=== PATIENT | male | born 1995 | race Caucasian/White ===

== ENCOUNTER 2021-02-06 18:24 | Observation (INO) ==
--- NOTE | 2021-02-06 22:12 | Emergency Department Note ---
History of Present Illness General Chief Complaint: Abdominal Pain Stated Complaint: ABD PAIN, NAUSEA Time Seen by Provider: 02/06/21 21:58 Source: patient Mode of arrival: ambulatory Limitations: no limitations History of Present Illness Provider Complaint: abdominal pain Onset (ago): hour(s) (Began around 4 AM) Pain Consistency: constant Location: RUQ and epigastric Radiation: none Migration to: no migration Severity: severe Maximum Pain Intensity: 8 Quality: + cramping Relieved By: + nothing Exacerbated By: + nothing Context: no foreign travel, no possible food poisoning, no sick contacts, no recent antibiotic use, no recent surgery/procedure, no recent injury or no history of similar episodes Associated Symptoms: + nausea and + vomiting; no diarrhea and no constipation Treatments prior to arrival: none Home Medications Medication Instructions Recorded Confirmed Type None (Patient States No Home Meds) #0 08/03/08 History Epinephrine (Epipen *) 0.3 mg IM UD #1 03/25/11 Rx simethicone 80 mg chewable tablet 160 mg PO DIRECTED PRN 02/06/21 02/06/21 History hydrocodone 5 mg-acetaminophen 325 1 - 2 tab PO .q4h- q6h PRN #15 tab 02/07/21 Rx mg tablet Allergies Allergy/AdvReac Type Severity Reaction Status Date / Time amoxicillin Allergy Intermediate HIVES Verified 02/07/21 08:16 AN Penicillins Allergy Intermediate HIVES Verified 02/07/21 08:16 AN INFANT BEES Allergy Intermediate HIVES, Uncoded 02/07/21 08:16 SWELLING, ITCHING, REDNESS Past Med/Surg History Medical History (Updated 02/07/21 @ 18:58 by Darío Keys MD) No pertinent past medical history Surgical History (Updated 02/07/21 @ 12:49 by Mona Almanzar RN) Hx laparoscopic cholecystectomy (02/07/21) Laparoscopic Cholecystectomy Dr. Ford 02/07/2021 No pertinent past surgical history Social History (System 02/07/21 @ 08:16 by Britney Rios) Smoking Status: Former smoker Tobacco Type: Smokeless Tobacco (Dip or Chew) Hx Alcohol Use: No Hx Substance Use: No Preferred Language: Taiwanese Communication Ability: Effective Electric Meter Installer Required: No Beliefs That Will Affect Care: None Current Living Situation: Family Feels Safe at Home: Yes Assistive Devices: None Physical Exam Vital Signs: Vital Signs - 24 hr 02/06/21 22:44 02/06/21 23:01 02/06/21 23:30 Pulse Rate 58 L 58 L 50 L Pulse Rate from Sp O2 Sensor 56 L 58 L 50 L Respiratory Rate 18 16 21 Blood Pressure 151/86 H 165/89 H 162/99 H Blood Pressure Jerica n 107 114 120 Pulse Oximetry 98 99 99 02/07/21 01:00 02/07/21 01:30 02/07/21 01:48 Pulse Rate 66 61 58 L Pulse Rate from Sp O2 Sensor 67 58 L 58 L Respiratory Rate 25 H 16 14 Blood Pressure 129/84 128/68 144/76 H Blood Pressure Jerica n 99 88 98 Pulse Oximetry 97 96 97 02/07/21 02:30 02/07/21 03:01 Pulse Rate 52 L 79 Pulse Rate from Sp O2 Sensor Respiratory Rate 18 15 Blood Pressure 104/79 116/92 Blood Pressure Jerica n 87 100 Pulse Oximetry 97 99 Physical Exam: GENERAL: Mildly uncomfortable in appearance, wearing glasses and a mask. EYE EXAM: Normal conjunctiva. PERRL, no anisocoria and EOM's grossly intact w/o pain. NECK: Supple, no nuchal rigidity, no adenopathy, non-tender. No signs of meningismus. [FROM of the neck with good chin to chest and neck extension. No stridor.] LUNGS: Clear to auscultation. Normal chest wall mechanics. HEART: NSR, no MRG. ABDOMEN: Abdomen soft, gastric and right upper quadrant pain, normo-active bowel sounds, no masses, no rebound or guarding. BACK: No CVA TTP. SKIN: No rashes and no bruising. UPPER EXTREMITIES: Upper extremities are grossly normal. LOWER EXTREMITIES: Grossly normal, no edema. NEURO EXAM: A&O x3, cranial nerves II-XII grossly intact, normal speech, moves all 4 extremities on command w/o issue. [Good finger to nose, no drift, no sensory deficits.] Course Course Cardiac monitoring: An order was placed for continuous cardiac monitoring. The monitor shows a rate of 52 with sinus rhythm. Administered Medications Sodium Chloride (Nss 1000ml) 1,000 mls @ 125 mls/hr IV .Q8H JOSE Stop: 03/09/21 04:14 Last Admin: 02/07/21 18:35 Dose: 125 mls/hr Documented by: [id number] Infusion: 02/07/21 17:55 Dose: 125 mls/hr Documented by: [id number] Admin: 02/07/21 09:55 Dose: 125 mls/hr Documented by: [id number] Infusion: 02/07/21 09:55 Dose: 125 mls/hr Documented by: [id number] Admin: 02/07/21 05:48 Dose: 125 mls/hr Documented by: [id number] Acetaminophen (Ofirmev) 1,000 mg in 100 mls @ 400 mls/hr IV Q8H [facility] Stop: 02/10/21 06:59 Last Infusion: 02/07/21 15:06 Dose: 0 mls/hr Documented by: [id number] Admin: 02/07/21 14:51 Dose: 400 mls/hr Documented by: [id number] Admin: 02/07/21 09:46 Dose: Not Given Documented by: [id number] Cefoxitin Sodium 2,000 mg/ (Dextrose) 60 mls @ 100 mls/hr IV Q6H [facility] Stop: 02/09/21 09:59 Last Infusion: 02/07/21 16:37 Dose: 0 mls/hr Documented by: [id number] Admin: 02/07/21 16:00 Dose: 100 mls/hr Documented by: [id number] Infusion: 02/07/21 10:49 Dose: 0 mls/hr Documented by: [id number] Admin: 02/07/21 10:13 Dose: 100 mls/hr Documented by: [id number] Menthol (Cough Drop (Sugar Free) Berenice 24 Berenice/1 Box) 1 berenice BUCCAL PRN PRN PRN Reason: Sore Throat Stop: 03/09/21 16:00 Last Admin: 02/07/21 16:31 Dose: 1 berenice Documented by: [id number] Discontinued Medications Bupivacaine HCl (Bupivacaine 0.5 % 5 Mg/1 Ml Mpf 30ml Vial) Confirm Administered Dose 30 ml .ROUTE .STK-MED ONE Stop: 02/07/21 07:23 Last Admin: 02/07/21 08:49 Dose: 30 ml Documented by: [id number] Dicyclomine HCl (Dicyclomine Hcl 10 Mg/Ml 2 Ml Amp/Vial) 20 mg IM NOW ONE Stop: 02/06/21 22:36 Last Admin: 02/06/21 22:50 Dose: 20 mg Documented by: [id number] Epinephrine HCl (Epinephrine Inj 1 Mg/Ml Amp) Confirm Administered Dose 1 mg .ROUTE .STK-MED ONE Stop: 02/07/21 07:22 Last Admin: 02/07/21 08:48 Dose: 0.15 mg Documented by: [id number] Fentanyl Citrate (Fentanyl Citrate 100 Mcg/2 Ml Vial) 25 mcg IV Q5M PRN PRN Reason: PACU Use Only-Pain Stop: 02/07/21 15:08 Last Admin: 02/07/21 09:11 Dose: 25 mcg Documented by: [id number] Admin: 02/07/21 09:06 Dose: 25 mcg Documented by: [id number] Sodium Chloride (Nss 1000ml) 1,000 mls @ 999 mls/hr IV .Q1H1M STA Stop: 02/06/21 23:35 Last Infusion: 02/06/21 23:49 Dose: 0 mls/hr Documented by: [id number] Admin: 02/06/21 22:48 Dose: 999 mls/hr Documented by: [id number] Cefoxitin Sodium (Mefoxin) 2,000 mg in 60 mls @ 100 mls/hr IV NOW STA Stop: 02/07/21 04:41 Last Infusion: 02/07/21 04:55 Dose: 0 mls/hr Documented by: [id number] Admin: 02/07/21 04:19 Dose: 100 mls/hr Documented by: [id number] Sodium Chloride (Nss 1000ml) 1,000 mls @ 999 mls/hr IV .Q1H1M ONE Stop: 02/07/21 05:06 Last Infusion: 02/07/21 05:47 Dose: 0 mls/hr Documented by: [id number] Admin: 02/07/21 04:19 Dose: 999 mls/hr Documented by: [id number] Ioversol (Optiray 320 100ml) 100 ml IV ONCE ONE Stop: 02/07/21 00:40 Last Admin: 02/07/21 00:39 Dose: 93 ml Documented by: [id number] Ketorolac Tromethamine (Ketorolac 30 Mg/Ml Vial) 30 mg IV NOW STA Stop: 02/06/21 23:41 Last Admin: 02/07/21 00:05 Dose: 30 mg Documented by: [id number] Ondansetron HCl (Ondansetron Inj 2 Mg/Ml 2 Ml Vial) 4 mg IV NOW STA Stop: 02/06/21 22:36 Last Admin: 02/06/21 22:49 Dose: 4 mg Documented by: [id number] Ondansetron HCl (Ondansetron Inj 2 Mg/Ml 2 Ml Vial) 4 mg IV ONCE PRN PRN Reason: PACU Use Only-Nausea/Vomiting Stop: 02/07/21 15:08 Last Admin: 02/07/21 09:06 Dose: 4 mg Documented by: [id number] Medical Decision Making Differential Diagnosis Appendicitis, testicular torsion, infections, diverticulitis, UTI, obstruction, mesenteric ischemia, aortic pathology, inflammatory bowel disease, renal colic, PUD, pancreatitis, biliary pathology, hernia, volvulus, constipation, as well as other pathologies. Medical Records Attestation: I reviewed the patient's medical records. Home Medications Current Medication List: was personally reviewed by me Laboratory Data Attestation: I reviewed the patient's lab results. Result diagrams: 02/06/21 22:25 02/06/21 22:25 Lab Results 02/06/21 02/06/21 02/07/21 Range/Units 22:25 22:25 00:05 WBC 15.16 H (4.8-10.8) K/uL RBC 5.18 (4.7-6.1) M/uL Hgb 15.7 (14.0-18.0) g/dL Hct 45.5 (42-52) % MCV 87.8 (80-100) fL MCH 30.3 (25-34) pg MCHC 34.5 (32-36) g/dL RDW Std Deviation 40.5 (36.4-46.3) fL RDW Coeff of Geovanna 12.7 (11.5-14.5) % Plt Count 303 (130-400) K/uL MPV 11.2 H (7.4-10.4) fL Immature Gran % (Auto) 0.2 % Neut % (Auto) 86.9 % Lymph % (Auto) 7.2 % [place] % (Auto) 5.5 % Eos % (Auto) 0.1 % Baso % (Auto) 0.1 % Neut # (Auto) 13.18 H (1.4-6.5) K/uL Lymph # (Auto) 1.09 L (1.2-3.4) K/uL [place] # (Auto) 0.84 H (0.11-0.59) K/uL Eos # (Auto) 0.01 (0-0.5) K/uL Baso # (Auto) 0.01 (0-0.2) K/uL Immature Gran # (Auto) 0.03 H (0.00-0.02) K/uL Sodium 139 (136-145) mmol/L Potassium 3.9 (3.5-5.1) mmol/L Chloride 107 (98-107) mmol/L Carbon Dioxide 26 (21-32) mmol/L Anion Gap 6.0 (3-11) BUN 15 (7-18) mg/dl Creatinine 0.90 (0.6-1.4) mg/dl Est Cr Clr Drug Dosing 151.4 ml/min Est GFR ( Amer) 135.2 ml/min Est GFR (Non-Af Amer) 116.6 ml/min BUN/Creatinine Ratio 16.8 (10-20) Glucose 120 H (70-99) mg/dl Calcium 8.9 (8.5-10.1) mg/dl Total Bilirubin 0.7 (0.2-1) mg/dl AST 16 (15-37) U/L ALT 42 (12-78) U/L Alkaline Phosphatase 70 (45-117) U/L Troponin I < 0.015 (0-0.045) ng/ml Total Protein 8.0 (6.4-8.2) gm/dl Albumin 4.1 (3.4-5.0) gm/dl Globulin 3.9 (2.5-4.0) gm/dl Albumin/Globulin Ratio 1.1 (0.9-2) Lipase 109 (73-393) U/L Urine Color Yellow Urine Appearance Clear (Clear) Urine pH 5.5 (4.5-7.5) Ur Specific [place] 1.026 (1.000-1.030) Urine Protein Negative (Negative) Urine Glucose (UA) Negative (Negative) Urine Ketones Trace H (Negative) Urine Blood Negative (Negative) Urine Nitrite Negative (Negative) Urine Bilirubin Negative (Negative) Urine Urobilinogen Negative (Negative) Ur Leukocyte Esterase Negative (Negative) Imaging Data Attestation: I personally reviewed and interpreted this imaging study as follows: My Impression: KUB: Nonobstructive bowel gas pattern. Radiologist's Impression: CT abdomen pelvis with IV contrast: Gallbladder is distended but not dilated. Question of slight gallbladder wall thickening. No calcified stones or surrounding edema. No biliary duct dilatation is seen. Appendix is not visible. Bowel loops are nondilated. No pneumoperitoneum free fluid or focal inflammatory changes within the bowel. No fracture or subluxation. MDM Narrative Patient was seen due to concern for abdominal pain beginning yesterday around 4 AM. The patient has had nausea with one episode of vomiting. The patient thought this was a gas bubble. The patient does not relate that it had worsened at all with eating but had gotten worse throughout the last day and a half. Patient denies any fevers or chills. No chest pains or shortness of breath. The patient does use smokeless tobacco and occasional alcohol. Patient did have blood work completed white count of 15. Initial KUB unremarkable. CT abdomen pelvis was subsequently completed his use and persistent discomfort. There was questionable gallbladder distention but no obvious signs of acute cholecystitis but this could not be ruled out. Patient still has right upper quadrant pain so gallbladder ultrasound was obtained. Patient was reassessed several times patient did have improvement in his symptoms no further vomiting this time. Patient was pending gallbladder ultrasound at the time the patient was signed out to Dr. Barrow the overnight physician pending reevaluation and treatment and follow-up of the gallbladder ultrasound. Impression & Plan Acute cholecystitis Discharge Plan Visit Data Chief Complaint: Abdominal Pain Stated Complaint: ABD PAIN, NAUSEA ED Provider: Darío Keys Discharge Problem: Acute cholecystitis Patient Disposition: Admitted As Inpatient Discharge Instructions Interventions: ED Discharge Assessment Last Done: 02/07/21 06:15
[2021-02-06] MEDS ORDERED: SODIUM CHLORIDE 0.9% 1000ML 1,000 ML IV STA (22:35)
[2021-02-06] MEDS ORDERED: DICYCLOMINE HCL 10 MG/ML 2 ML AMP/VIAL IM ONE (22:35)
[2021-02-06] MEDS ORDERED: ONDANSETRON INJ 2 MG/ML 2 ML VIAL IV STA (22:35)
[2021-02-06 22:36] LABS: Basophils # (auto) 0.01 K/uL (0-0.2); Basophils % (auto) 0.1 %; Eosinophils # (auto) 0.01 K/uL (0-0.5); Eosinophils % (auto) 0.1 %; Hematocrit (blood only) 45.5 % (42-52); Hemoglobin 15.7 g/dL (14.0-18.0); Immature Granulocytes # (auto) 0.03 K/uL (0.00-0.02); Immature Granulocytes % (auto) 0.2 %; Lymphocytes # (auto) 1.09 K/uL (1.2-3.4); Lymphocytes % (auto) 7.2 %; Mean Corpuscular Hemoglobin 30.3 pg (25-34); Mean Corpuscular Hgb Conc 34.5 g/dL (32-36); Mean Corpuscular Volume 87.8 fL (80-100); Mean Platelet Volume 11.2 fL (7.4-10.4); Monocytes # (auto) 0.84 K/uL (0.11-0.59); Monocytes % (auto) 5.5 %; Neutrophils # (auto) 13.18 K/uL (1.4-6.5); Neutrophils % (auto) 86.9 %; Platelet Count 303 K/uL (130-400); RDW Coefficient of Variation 12.7 % (11.5-14.5); RDW Standard Deviation 40.5 fL (36.4-46.3); Red Blood Count 5.18 M/uL (4.7-6.1); White Blood Count 15.16 K/uL (4.8-10.8)
[2021-02-06 22:54] LABS: Alanine Aminotransferase 42 U/L (12-78); Albumin Level 4.1 gm/dl (3.4-5.0); Aspartate Aminotransferase 16 U/L (15-37); BUN Creatinine Ratio 16.8 (10-20); Blood Urea Nitrogen 15 mg/dl (7-18); Calcium 8.9 mg/dl (8.5-10.1); Carbon Dioxide 26 mmol/L (21-32); Chloride 107 mmol/L (98-107); Creatinine Clr Calc Pharmacy 151.4 ml/min; Est GFR (African American) 135.2 ml/min; Est GFR (Non-African American) 116.6 ml/min; Glucose 120 mg/dl (70-99); Lipase 109 U/L (73-393); Potassium 3.9 mmol/L (3.5-5.1); Sodium 139 mmol/L (136-145)
[2021-02-06 22:58] LABS: Albumin Globulin Ratio 1.1 (0.9-2); Alkaline Phosphatase 70 U/L (45-117); Bilirubin,Total 0.7 mg/dl (0.2-1); Globulin 3.9 gm/dl (2.5-4.0)
[2021-02-06 23:11] LABS: Troponin I < 0.015 ng/ml (0-0.045)
[2021-02-06] MEDS ORDERED: KETOROLAC 30 MG/ML VIAL IV STA (23:40)
[2021-02-07] MEDS ORDERED: OPTIRAY 320 100ml IV ONE (00:39)
[2021-02-07 01:51] LABS: Appearance Urine Clear (Clear); Bilirubin Urine Negative (Negative); Blood Urine Negative (Negative); Color Urine Yellow; Glucose Urine UA Negative (Negative); Ketones Urine Trace (Negative); Leukocyte Esterase Urine Negative (Negative); Nitrite Urine Negative (Negative); Protein Urine Negative (Negative); Specific Gravity Urine 1.026 (1.000-1.030); Urobilinogen Urine Negative (Negative); pH Urine 5.5 (4.5-7.5)
[2021-02-07] MEDS ORDERED: cefOXitin 2,000 MG/60 ML BAG IV STA (04:06)
[2021-02-07] MEDS ORDERED: SODIUM CHLORIDE 0.9% 1000ML 1,000 ML IV ONE (04:06)
--- NOTE | 2021-02-07 04:12 | Emergency Department Note ---
ED Visit Note ED Physician Sign Out Note: 25 yr old male with family history GB dysfunction arrives for evaluation RUQ/Epigastric pain 9 hours earlier. Evaluated and managed by Dr Keys who signed patient out to me pending US GB as CT non-specific GB findings. US reveals concern cholecystitis, labs with WBC 15, and he has RUQ TTP still. Consistent with acute cholecytitis. Patient updated and comfortable with plan for gen surg evaluation. Discussed with Dr Ford of Gen Surg and covid testing, mefoxin, npo and fluids ordered. Osmar Barrow MD
[2021-02-07] MEDS: SODIUM CHLORIDE 0.9% 1000ML 1,000 ML IV SCH ×3 (05:48→18:35)
[2021-02-07] MEDS ORDERED: HYDROmorphone INJ 0.5 MG/0.5 ML SYR IV PRN ×2 (06:41)
[2021-02-07] MEDS ORDERED: ONDANSETRON INJ 2 MG/ML 2 ML VIAL IV PRN ×2 (06:41→07:08)
--- NOTE | 2021-02-07 06:58 | Anesthesiology Consultation ---
Date of Service February 07, 2021 History Surgery Operation Date: 02/07/21 07:00 Proposed Procedures p Laparoscopic Cholecystectomy - Nikolas Ford, DO Height/Weight Height: 5 ft 10 in Weight: 111.1 kg Allergies Allergy/AdvReac Type Severity Reaction Status Date / Time amoxicillin Allergy Intermediate HIVES Verified 02/06/21 22:16 AN Penicillins Allergy Intermediate HIVES Verified 02/06/21 22:16 AN INFANT Medications Home Medications Medication Instructions Recorded Confirmed Last Taken simethicone 80 mg chewable tablet 160 mg PO DIRECTED PRN 02/06/21 02/06/21 02/06/21 16:00 Active Medications Generic Name Dose Route Start Last Admin Trade Name Freq PRN Reason Stop Dose Admin Sodium Chloride 1,000 mls @ 125 mls/hr 02/07/21 04:15 02/07/21 05:48 Nss 1000ml IV 03/09/21 04:14 125 mls/hr .Q8H JOSE Administration Past Medical History Medical History No pertinent past medical history Asthma as child Past Surgical History Surgical History No pertinent past surgical history Social History Smoking Status: Former smoker Hx Alcohol Use: No Hx Substance Use: No Physical Exam Vital Signs Last Vital Signs Temp 37.0 C 02/07/21 06:41 Pulse 56 L 02/07/21 06:41 Resp 18 02/07/21 06:41 BP 118/76 02/07/21 06:41 Pulse Ox 98 02/07/21 06:41 Testing Laboratory Results 02/06/21 22:25 02/06/21 22:25 Urine Color Yellow 02/07/21 00:05 Urine Appearance Clear (Clear) 02/07/21 00:05 Urine pH 5.5 (4.5-7.5) 02/07/21 00:05 Ur Specific [place] 1.026 (1.000-1.030) 02/07/21 00:05 Urine Protein Negative (Negative) 02/07/21 00:05 Urine Glucose (UA) Negative (Negative) 02/07/21 00:05 Urine Ketones Trace (Negative) H 02/07/21 00:05 Urine Nitrite Negative (Negative) 02/07/21 00:05 Ur Leukocyte Esterase Negative (Negative) 02/07/21 00:05
[2021-02-07] MEDS ORDERED: ATROPINE SULFATE 0.1 MG/ML 10ML SYR IV PRN (07:08)
[2021-02-07] MEDS ORDERED: ePHEDrine sulfate 50 MG/ML AMP IV PRN (07:08)
[2021-02-07] MEDS ORDERED: HYDROmorphone INJ 1 MG/ML SYRINGE IV PRN (07:08)
[2021-02-07] MEDS ORDERED: EPINEPHrine INJ 1 MG/ML AMP ONE (07:21)
[2021-02-07] MEDS ORDERED: BUPIVACAINE 0.5 % 5 MG/1 ML MPF 30ML VIAL ONE (07:22)
--- NOTE | 2021-02-07 07:32 | History & Physical Report ---
Date of Service February 07, 2021 Assessment & Plan (1) Acute cholecystitis: Plan: discussed findings/options. discussed risks ( bleeding/infection/bile duct injury or leaks, injury to other organs, dvt/pe/mi/cva. quesitons answered. pt agreeable. for damien schulz this AM Admission and Anticipated Discharge Date Admission Date: February 07, 2021 History of Present Illness Primary Care Provider: NO PCP 25 year old with 24 hours of RUQ pain and nausea. . imaging c/w acute cholecystitis. Allergies Allergy/AdvReac Type Severity Reaction Status Date / Time amoxicillin Allergy Intermediate HIVES Verified 02/06/21 22:16 AN Penicillins Allergy Intermediate HIVES Verified 02/06/21 22:16 AN Home Medications Medication Instructions Recorded Confirmed Type simethicone 80 mg chewable tablet 160 mg PO DIRECTED PRN 02/06/21 02/06/21 History Past Med/Surg History Medical History No pertinent past medical history Surgical History No pertinent past surgical history Social History Smoking Status: Former smoker Tobacco Type: Smokeless Tobacco (Dip or Chew) Hx Alcohol Use: No Hx Substance Use: No Preferred Language: Lao Communication Ability: Effective Esthetic Dermatologist Required: No Beliefs That Will Affect Care: None Current Living Situation: Family Other Information That Helps Us Care for You: No Feels Safe at Home: Yes Safety Concerns: Feels Safe At This Time Assistive Devices: None Review of Systems All systems reviewed & are unremarkable except as noted in HPI & below Physical Exam Constitutional: WD/WN, vitals as above no acute distress and not ill appearing Eyes: PERRL, conjunctivae normal, anicteric sclerae EOM intact bilaterally ENMT: external ear and nose normal, oropharynx normal Ears: no hearing impairment Neck: trachea midline, no thyromegaly Respiratory: normal respiratory effort; no respiratory distress and does not use accessory muscles Cardiovascular: Rate/Rhythm: regular rate and regular rhythm Gastrointestinal (Abdomen): soft. +ruq ttp. no peritoneal signs Skin: no rashes, warm and dry Psychiatric: Orientation: alert, oriented x 3 and cooperative Results & Data ([facility]) Vital Signs (Past 12 Hours) Vital Signs Temp Pulse Pulse Resp BP BP Pulse Ox 02/07/21 07:25 36.8 C 63 18 146/83 H 96 02/07/21 06:41 37.0 C 56 L 18 118/76 98 02/07/21 05:00 49 L 13 130/74 98 02/07/21 04:24 63 16 134/79 96 02/07/21 03:01 79 15 116/92 99 02/07/21 02:30 52 L 18 104/79 97 02/07/21 01:48 58 L 14 144/76 H 97 02/07/21 01:30 61 16 128/68 96 02/07/21 01:00 66 25 H 129/84 97 02/06/21 23:30 50 L 21 162/99 H 99 02/06/21 23:01 58 L 16 165/89 H 99 02/06/21 22:44 58 L 18 151/86 H 98 Code Status & VTE Plan VTE Prophylaxis Plan VTE Prophylaxis will be ordered: Yes
--- NOTE | 2021-02-07 07:51 | CT Scan Report ---
ABDOMEN AND PELVIS CT WITH IV CONTRAST CT DOSE: 1775.58 mGy.cm HISTORY: Acute upper abdominal pain upper ab pain TECHNIQUE: Multiaxial CT images of the abdomen and pelvis were performed following the IV administrat ion of 93 cc of Optiray, A dose lowering technique was utilized adhering to the principles of ALARA. COMPARISON STUDY: Right upper quadrant ultrasound of same day FINDINGS: The imaged inferior cardiac chambers are unremarkable. Clear lung bases. No pneumatosis or pneumoperi toneum. The spleen, pancreas and liver appear unremarkable. Punctate calcifications of the adrenal gl ands. Patency of the hepatic and portal veins. The gallbladder is distended and demonstrates equivoca l gallbladder wall thickening and pericholecystic inflammation. The cholelithiasis described on the u ltrasound study of same day are not visualized. No biliary ductal dilation. Unremarkable kidneys. No hydronephrosis. Partial distention of the urinary bladder with mild wall thi ckening. Aorta and IVC are unremarkable. There is no adenopathy. No bowel obstruction or bowel wall t hickening. No ascites or mesenteric inflammation. Mild to moderate fecal retention. Minimal colonic d iverticulosis. Fluid-filled mildly distended terminal ileum. The appendix is not diagnostically visua lized. No secondary signs of acute appendicitis. Gynecomastia. Unremarkable soft tissues. There is no acute fracture. IMPRESSION: 1. Gallbladder distention with equivocal wall thickening and trace pericholecystic edema. The choleli thiasis described on the ultrasound study of same day is not appreciated by CT. Findings are suspicio us for acute cholecystitis in the appropriate clinical setting. 2. No bowel obstruction or bowel wall thickening. ACT 112: Negative or not required by law. The above report was generated using voice recognition software. It may contain grammatical, syntax o r spelling errors. Electronically signed by: Antoni Crandall M.D. 02/07/2021 7:50 AM
--- NOTE | 2021-02-07 07:54 | Ultrasound Report ---
US gallbladder HISTORY: 25 years-old Male r/o acute zeus acute right upper quadrant abdominal pain COMPARISON: CT study of same day TECHNIQUE: Multiple real-time sonographic images of the abdominal right upper quadrant were obtained assessing grayscale appearance and color flow FINDINGS: The visualized pancreas is unremarkable. Mildly increased echogenicity of the liver, possibly represe nting hepatic steatosis. Gallbladder distention measures up to 10.37 m in length. Layering gallbladde r sludge with nonmobile cholelithiasis and the neck and possibly extending into the cystic duct.r the gallbladder wall measures up to approximately 4 mm in thickness. No definite pericholecystic fluid. Sonographic Patel sign was unable to be assessed secondary to recent pain medication administered to the patient. Normal common bile duct, 2.8 mm. The imaged right kidney is unremarkable without hydronephrosis. IMPRESSION: 1. Cholelithiasis with gallbladder distention and mild wall thickening is suspicious for acute cholec ystitis. 2. No biliary ductal dilation. ACT 112: Negative or not required by law. The above report was generated using voice recognition software. It may contain grammatical, syntax o r spelling errors. Electronically signed by: Antoni Crandall M.D. 02/07/2021 7:52 AM
--- NOTE | 2021-02-07 08:35 | XRay Report ---
KUB CLINICAL HISTORY: Upper abdominal pain. FINDINGS: 2 AP supine abdominal radiographs are obtained. No prior studies are available for comparis on at the time of dictation. There is a nonobstructed abdominal bowel gas pattern. No evidence of int raperitoneal free air is seen on these supine views. Mild fecal retention is seen throughout the colo n. There are no abnormal abdominal calcifications. The bony structures appear intact. The lungs are c lear as imaged. IMPRESSION: No acute abnormality is identified. Electronically signed by: Britton Fischer M.D. 02/07/2021 8:33 AM
[2021-02-07] MEDS: fentaNYL citrate 100 MCG/2 ML VIAL IV PRN ×2 (09:06→09:11)
--- NOTE | 2021-02-07 09:17 | Post Operative Brief Note ---
PG Immediate Post Op with CF Date of Surgery February 07, 2021 Pre & Post Diagnosis Operation Date: 02/07/21 07:00 Pre-Op Diagnosis: Acute Cholecystitis Post-Op Diagnosis: Acute Cholecystitis I identified the patient and participated in the time-out.: Yes Procedure Operation Date: 02/07/21 07:00 Actual Procedures p Laparoscopic Cholecystectomy(Not Applicable) - Nikolas Ford DO Surgeon Nikolas Ford DO Insurance Territory Manager n/a Estimated Blood Loss 20 Findings Consistent with Post-Op Diagnosis Specimens Specimen Description: A. Gallbladder and contents
--- NOTE | 2021-02-07 09:23 | Operative Report ---
PG Post Operative Report Pre & Post Diagnosis Operation Date: 02/07/21 07:00 Pre-Op Diagnosis: Acute Cholecystitis Post-Op Diagnosis: Acute Cholecystitis I identified the patient and participated in the time-out.: Yes Procedure Operation Date: 02/07/21 07:00 Actual Procedures p Laparoscopic Cholecystectomy(Not Applicable) - Nikolas Ford DO Surgeon Nikolas Ford DO Reel System Operator n/a Estimated Blood Loss 20 Findings Consistent with Post-Op Diagnosis Specimens gallbladder and contents Description of Procedure After informed consent was obtained the patient was taken to the operating room and placed in the supine position. After successful intubation the abdomen was sterilely prepped and draped in usual fashion. A periumbilical incision was made with an 11 blade scalpel and carried down through the soft tissue using electrocautery. The anterior rectus fascia was opened using electrocautery and 2 #0 Vicryl stay sutures were placed. The peritoneum was elevated with hemostats and incised under direct vision using Metzenbaum scissors. A finger sweep was performed and a 12 mm Jaeger trocar was placed. The abdomen was insufflated to 20 mmHg. The laparoscope was inserted and the abdomen was examined in 360. As anticipated the gallbladder was acutely inflamed otherwise no gross abnormalities were identified. A subxiphoid 5 mm port and 2 right upper quadrant 5 mm ports were placed under direct vision. The patient was placed in a reverse Trendelenburg position and slightly airplaned to the left. Initially the gallbladder was too sick to grasp therefore used a gallbladder needle to remove about 20 to 30 cc of bile. The gallbladder was grasped and elevated superiorly and laterally. A [place] dissector was used to take down adhesions around the neck of the gallbladder. The cystic duct was identified and skeletonized. It was clipped twice proximally and once distally and transected using a laparoscopic scissor. In similar fashion the cystic artery was identified and skeletonized clipped and divided. The gallbladder was removed from the gallbladder fossa with electrocautery. Because of the acute inflammation several small holes were made in the gallbladder by the graspers releasing bile in the right upper quadrant. This was immediately suctioned and irrigated out. It was placed into an Endo Catch bag. Thorough irrigation was performed. At the end of the procedure there was adequate hemostasis and no evidence of any bile leaks. A final look around the abdomen showed no other abnormalities. The gallbladder and trochars were all removed and the abdomen was desufflated. The fascia of the camera port was closed using 0 Vicryl in a [id number] fashion. All the wounds were irrigated and closed using 4-0 Monocryl. Marcaine was injected around them for postoperative analgesia and skin glue used as a dressing. The patient was awaken extubated and transferred to recovery in stable condition. I attest to the content of the Intraoperative Record and any orders documented therein. Any exceptions are noted below.
[2021-02-07] MEDS ORDERED: HYDROCODONE/ACETAMOPHEN 5/325MG TAB PO PRN ×2 (09:37)
[2021-02-07] MEDS: ACETAMINOPHEN 1,000 MG/100 ML VIAL IV SCH ×3 (09:46→22:23)
[2021-02-07] MEDS: cefOXitin 2,000 MG in DEXTROSE 5% 50 ML IV SCH ×3 (10:13→22:25)
--- NOTE | 2021-02-07 15:18 | Electrocardiogram Report ---
Test Reason : Blood Pressure : / mmHG Vent. Rate : 057 BPM Atrial Rate : 057 BPM P-R Int : 140 ms QRS Dur : 096 ms QT Int : 386 ms P-R-T Axes : 031 039 031 degrees QTc Int : 375 ms Sinus bradycardia Incomplete right bundle branch block No previous ECGs available Confirmed by Basil Goff ([id number]) on 02/07/2021 3:17:56 PM Referred By: REFERRED SELF Confirmed By:Azar Goff
--- NOTE | 2021-02-07 15:22 | Electrocardiogram Report ---
Test Reason : Blood Pressure : / mmHG Vent. Rate : 057 BPM Atrial Rate : 057 BPM P-R Int : 140 ms QRS Dur : 098 ms QT Int : 392 ms P-R-T Axes : 022 042 030 degrees QTc Int : 381 ms Sinus bradycardia with sinus arrhythmia Otherwise normal ECG When compared with ECG of 1993 15:30, PREVIOUS ECG IS PRESENT Confirmed by Basil Goff ([id number]) on 02/07/2021 3:21:48 PM Referred By: REFERRED SELF Confirmed By:Azar Goff
[2021-02-07] MEDS ORDERED: COUGH DROP (SUGAR FREE) LOZ 24 LOZ/1 BOX BUCCAL PRN (16:01)
[2021-02-08] MEDS: SODIUM CHLORIDE 0.9% 1000ML 1,000 ML IV SCH ×2 (03:28→14:32)
[2021-02-08] MEDS: cefOXitin 2,000 MG in DEXTROSE 5% 50 ML IV SCH ×2 (03:28→10:25)
[2021-02-08] MEDS: ACETAMINOPHEN 1,000 MG/100 ML VIAL IV SCH (06:50)
--- NOTE | 2021-02-08 13:49 | History & Physical Bridge Note ---
Date of Service February 08, 2021 History & Physical Bridge Note I have examined the patient, reviewed the History & Physical and in the interval since the performance of the History & Physical I have noted the following changes of clinical significance: meditech error with progress notes so documenting in bridge note. pt doing well. karthikeyan food. wants to go home. abd: soft. expected post op tenderness. ok for d/c. instructions given.
== END 2021-02-08 15:35 | disposition home or self-care (01) ==
LOC: 3E 18:24 → ED 18:24 → MERGE 02-07 04:16 → 3E 02-07 06:15